=== PATIENT | female | born 1955 | race Caucasian/White ===

== ENCOUNTER 2016-03-11 11:46 | Day surgery (SDC) | payer OTHER ==
[~2016-03-11] VITALS: Ht 172.7 cm; Wt 89.5 kg
[2016-03-11] VITALS (9 sets, daily range): BP systolic 125–149; BP diastolic 67–76; PULSE 70–84; RESP 14–25; O2SAT 91–96
--- NOTE | 2016-03-11 10:51 | PCM.HPANE ---
Patient Data Surgeon Admitting Provider: Attending Provider:Loraine Vieira MD Primary Care Physician:Francisco Diaz MD Other Provider:Rosi Haasingham Anesthesia Reason for Visit Right Upper Chest Wall Mass Ht/WT & BMI Height (Feet): 5 Height (Inches): 8 Weight (Kilograms): 89.0 Body Mass Index 29.00 Allergies Coded Allergies: Sulfa (Sulfonamide Antibiotics) (Verified Allergy, Unknown, 03/09/16) Past Anesthesia History Anesthesia History: Denies:: Abnormal Airway, Anesthesia Reactions (woke up in middle of colonoscopy), Difficult Intubation, Fam Anesthesia Reaction, Fam Malignant Hypertherm, Malignant Hyperthermia Diabetes History Hx Diabetes?: No MRSA MRSA: No Medications Hypertension Medication: No Home Meds Incl Beta Jamaal: No Reported Medications Bimatoprost 0.03 % Drops1 Drop BOTH_EYES HS #3 03/11/16 Discontinued Reported Medications [glaucoma gtts] No Conflict CheckUnknown Dose DAILY will bring name of med with her dos 03/09/16 Multivitamin (Multi Vitamin Daily)1 Each Tablet1 Each PO DAILY 30 Days Ref 0 03/09/16 History HEENT History: Positive for:: Glaucoma (on gtts ) Denies:: Abnormal Airway Cataracts Difficult Intubation Dysphagia ("chokes" occasionally) Hearing Problem Sinus Problem Hx of Heart Problems?: No Cardiovascular History: Denies:: AICD Atrial Fibrillation Edema Heart Murmur Hypertension Irregular Heartbeat Pacemaker Peripheral Vascular Rheumatic Fever Hx of Respiratory Problem?: No Respiratory History: Denies:: Asthma COPD Emphysema Oxygen Administration Pneumonia Tuberculosis Use of C-PAP Machine Use of Inhalers / NEBS Hx Neurologic Problems?: No Neurological History: Denies:: CVA Headaches Multiple Sclerosis Parkinson's Disease Seizures Hx of GI Problems?: Yes Gastrointestinal History: Positive for:: Gall Bladder Disease (removed) Gastroesphageal Reflux (tums, several times weekly) Heartburn Denies:: Hepatitis Hiatal Hernia Liver Disease Hx of Problems?: No Genitourinary History: Denies:: Kidney Stones Urinary Tract Infection Female Hx: Positive for:: Problems with Breasts? (prior hx bilateral breast augmentation) Denies:: Currently (post menopausal) Skin History: Positive for:: History Skin Disorders? (right upper chest wall mass current admission problem) Hx Musculoskeletal Problems?: Yes Musculoskeletal History: Positive for:: Osteoarthritis (fingers- not officially diagnosed) Denies:: Back Injury Fibromyalgia Joint Replacement Musculoskeletal Trauma Rheumatoid Arthritis Hx of Psycho/Social Problems?: Yes Psycho Social History: Positive for:: Anxiety Hx Surgeries?: Yes (GALLBLADDER, bilateral CTR, c section) Hx Any Other Health Problems?: Yes Other History: Denies:: Cancer Thyroid Disease History Blood Transfusions: Positive for:: Accept Blood Products? Denies:: Blood Transfusions Hx Diabetes: No Hx Alcohol Use: YesAlcoholic Drinks Per Day: one drink every few monthsHx Substance Use: NoHave You Smoked inLast 12 mo: No Stop/Bang S-Snoring: Do You Snore Loudly: No T-Tired: feel tired, fatigued: No O-Obsered: Observed not breath: No P-Blood Pressure: treated: No B- Body Mass Index > 35 kg/m2: No A- Age over 50: No N- Neck Large Circumference: No G- Gender Male: No CARLOS EDUARDO Total Score: 0 CARLOS EDUARDO Risk Assessment: Low Risk, <3 Yes Risk Assessment Category Category 1A: Patient has history of documented sleep apnea, and HAS NOT received any narcotic, sedative or anesthesia administration during this stay. Category 1B: Patient has history of documented sleep apnea, and HAS received any narcotic , sedative or anesthesia administration during this stay Category 2: Patient has SUSPECTED Obstructive Sleep Apnea, and HAS received any narcotic , sedative or anesthesia administration during this stay. Category 3: Patient has SUSPECTED Obstructive Sleep Apnea and HAS NOT received narcotic, sedative or anesthesia administration during this stay. Category 4: Outpatient in Procedural Areas with known sleep apnea or who screen positive for High Risk via the STOP/BANG questionnaire. Exam Exam General Appearance: Alert, Oriented X3, Cooperative, No Acute Distress HEENT/AIRWAY: MP 2 Lungs: Clear to Auscultation, Normal Air Movement Heart: Exam Unremarkable, Regular Rate/Rhythm, No Murmurs/Rubs/Gallops Plan Impression Patient chart reviewed, patient interviewed and anesthestic plan with risks, benefits, and alternatives discussed, and informed consent obtained. ASA Physical Status: ASA2 Mod Systemic Disease Anesthetic Plan: GA Bene/Risks/Altern/Consents: Yes HP Complete Prior to Induction: Yes Luis Dupree MD Mar 11, 2016 10:51
[~2016-03-11 11:46] MED LIST: CeFAZolin 2 Gm/50 mL D5W IV Premix IV ONE; glaucoma gtts
[2016-03-11] MEDS ORDERED: Dexamethasone 4 mg/mL Inj ONE (11:47)
[2016-03-11] MEDS ORDERED: Propofol 10,000 mCg/mL 20 mL Inj ONE (11:47)
[2016-03-11] MEDS ORDERED: Ondansetron 2 mg/mL 2 mL Inj ONE (11:47)
[2016-03-11] MEDS ORDERED: fentaNYL-PF 50 mCg/mL 2 mL Inj ONE (11:47)
[2016-03-11] MEDS ORDERED: CeFAZolin 2 Gm/50 mL D5W Duplex Bag IV ONE (11:55)
[2016-03-11] MEDS: Lactated Ringer's 1,000 ML IV SCH ×2 (11:55→16:24)
[2016-03-11] MEDS ORDERED: BIMA2.5D6 BOTH_EYES (12:06)
[2016-03-11] MEDS ORDERED: Lactated Ringer's 500 ML IV PRN (16:39)
[2016-03-11] MEDS ORDERED: Lactated Ringer's 1,000 ML IV SCH (16:39)
[2016-03-11] MEDS ORDERED: Atropine 0.4 mg/mL Inj IVPUSH PRN (16:40)
[2016-03-11] MEDS ORDERED: HYDROmorphone 1 mg/mL Inj IVPUSH PRN (16:40)
[2016-03-11] MEDS ORDERED: Dexamethasone 4 mg/mL Inj IVPUSH PRN (16:40)
[2016-03-11] MEDS ORDERED: Ondansetron 2 mg/mL 2 mL Inj IVPUSH PRN (16:40)
[2016-03-11] MEDS ORDERED: MetoCLOpramide 5 mg/mL 2 mL Inj IVPUSH PRN (16:40)
[2016-03-11] MEDS ORDERED: fentaNYL-PF 50 mCg/mL 2 mL Inj IVPUSH PRN (16:40)
[2016-03-11] MEDS ORDERED: Phenylephrine 10,000 mCg/mL Inj IVPUSH PRN (16:40)
[2016-03-11] MEDS ORDERED: Labetalol 5 mg/mL 4 mL Inj IV PRN (16:40)
[2016-03-11] MEDS ORDERED: EPHEDrine Sulfate 50 mg/mL Inj IVPUSH PRN (16:40)
[2016-03-11] MEDS ORDERED: hydrALAZINE 20 mg/mL Inj IVPUSH PRN (16:40)
[2016-03-11] MEDS ORDERED: Bupivacaine-MPF 0.5% W/EPI 30 mL Inj INFILTRATE ONE (16:55)
[2016-03-11] MEDS ORDERED: oxyCODONE-Acetamin 5-325 mg Tablet PO PRN (17:15)
--- NOTE | 2016-03-11 17:22 | PCM.SURGOP ---
Surgical Operative Report Date of Service: Mar 11, 2016 Pre Operative Diagnosis Right chest wall lipoma Post Operative Diagnosis Right chest wall lipoma Procedure: Resection of right chest wall lipoma, 9 cm Surgeon and Senior Java Software Developer: Surgeon: Loraine Vieira M.D. Assistants: Alonso Zacarias PA-C; Parris Franco, MS 3 A trade sales assistant was necessary for retraction and dissection Indication for Procedure This is a 60-year-old woman who presented with a bulge on the right chest wall just inferior to the lateral aspect of the right clavicle. Because of the location, she underwent workup at the breast care center, including mammogram and ultrasound. Imaging findings were consistent with lipoma. It was slowly increasing in size and she was worried about the etiology. Therefore she desired resection. Findings: Lipoma, 9 cm in greatest dimension. Procedure Details The patient was brought to the operating room and placed in supine position. General anesthesia was induced. A warming blanket and SCDs were placed antibiotics were infused. A pause was performed to confirm the correct patient , procedure, site, and side. A 4.5 cm transverse incision was made overlying the mass which was just inferior to the lateral aspect of the right clavicle. The mass was immediately identifiable after the skin was divided. It was dissected free from surrounding tissues and exteriorized. It was clearly a lipoma, 9 cm in greatest dimension. It was entirely removed. Hemostasis was achieved with electrocautery. The subcutaneous tissues were carefully reapproximated with an interrupted 3-0 Vicryl stitch. Skin was closed with a running 4-0 Monocryl stitch. Marcaine was infused for local analgesia. A sterile dressing was placed. The patient was awakened from general anesthesia and taken to the postoperative care unit in good condition. Complications There were no periprocedural complications identified. Surgical Specimen Removed: Yes Specimen sent to Pathology: Yes Surgical Specimen description: Lipoma Anesthetic Plan: GA Grafts, Implants: None Output, Estimated Blood Loss: 0 (ml) Blood Administration during land: No Loraine Vieira MD Mar 11, 2016 17:22
--- NOTE | 2016-03-11 17:29 | PCM.ANEP1 ---
Post Anesthesia Phase 1 PACU Phase 1 Assessment Date of Service: Mar 11, 2016 Vital Signs Vital Signs Date Time Temp Pulse Resp B/P Pulse Ox O2 Delivery O2 Flow Rate FiO2 03/11/16 17:25 82 15 142/73 94 Nasal Cannula 2 03/11/16 17:22 36.4 84 14 138/72 91 Room Air 03/11/16 13:06 36.8 77 17 149/76 96 Room Air Anesthetic Administered: GA Level of Alertness: Awake, talking KRISHNA's with Equal Strength: Yes Pain: No Nausea or Vomiting: No Oxygen Delivery: Room Air Lungs: Clear to Auscultation, Normal Air Movement Dermatome Level: Full Sensation Luis Dupree MD Mar 11, 2016 17:29
--- NOTE | 2016-03-11 17:29 | PCM.ANEP2 ---
Post Anesthesia Evaluation ASA/CMS Post Anesthesia VS in Patient's Normal Range?: Yes Resp Stable; Airway Patent?: Yes CV Function & Hydration Stable: Yes Mental Status Recovered?: Yes Pain control Satisfactory?: Yes N/V Control Satisfactory?: Yes Luis Dupree MD Mar 11, 2016 17:29
[2016-03-11] MEDS ORDERED: Lactated Ringer's 1,000 ML IV ONE (17:48)
--- NOTE | 2016-03-16 12:00 | PATH ---
SURGICAL PATHOLOGY Attending Physician:Loraine Vieira MD CASE STATUS: Signed Out PATIENT NAME: GIGI BURK PID: [id number] : 1955 DATE COLLECTED:03/11/2016 00:00 SPECIMEN: Soft Tissue, Lipoma CLINICAL HISTORY: A: RIGHT UPPER CHEST LIPOMA 9X8X2.5 FINAL DIAGNOSIS: 1.RIGHT UPPER CHEST LIPOMA (9 X 8 X 2.5 CM): LIPOMA, NEGATIVE FOR ATYPIA. ICD10 CODE D17.1 GROSS DESCRIPTION: The specimen is received in formalin, labeled with the patient's name, sublabeled as right upper chest lipoma and consists of a piece of yellow rubbery lobular membranous adipose tissue (9.6 x 7.7 x 2.5 cm). The cut surface is homogenous and unremarkable. Ink code: black-exterior. Section code: (A, B) adipose tissue, cash posting representative. 03/13/16 JM MICRO DESCRIPTION: See diagnosis. ICD-9 CODES: CPT CODES: 1: 74839 Electronically Signed Out Ildefonso Pandey MD [facility] [address], [place] [address] Technical component performed at [facility], [address] [place] [address] Ave[address], [place], [address]
== END 2016-03-11 23:59 | disposition home or self-care (01) ==
LOC: SAS 11:46
PROVIDERS: ATTEND Surgery
DX: D17.1 Benign lipomatous neoplasm of skin and subcutaneous tissue of trunk (principal); F41.9 Anxiety disorder, unspecified; K21.9 Gastro-esophageal reflux disease without esophagitis; Z98.82 Breast implant status
CPT/HCPCS: 21552; J0690; J1100; J2250; J2405; J7120